=== PATIENT | male | born 1955 | race Caucasian/White ===

== ENCOUNTER → 2024-11-20 13:39 | Outpatient (REF) | payer MEDICARE, SELFPAY | LOC: PAVMRI 13:39 | PROVIDERS: ATTENDING PHYSICIAN Internal Medicine Gastroenterology; FAMILY PHYSICIAN Student in an Organized Health Care Education/Training Program | DX: K86.2 Cyst of pancreas (principal) | CPT/HCPCS: 74183; A9575 ==